=== PATIENT | male | born 1970 | race Hispanic/Latino ===

== ENCOUNTER 2017-09-07 12:17 | Outpatient (CLI) | payer OTHER ==
--- NOTE | 2017-09-07 14:56 | MRI ---
MRI RIGHT KNEE WITHOUT COTNRAST: HISTORY: S89.91XD, injury of right knee. COMPARISON: MRI right knee 12/30/15. FINDINGS: MEDIAL MENISCUS: Healed undersurface flap tear with scar tissue of the medial meniscus without displaced fibers. Mild to moderate degenerative signal in the medial meniscal body. LATERAL MENISCUS: Mild degenerative signal within the body of the lateral meniscus. The ACL and PCL, MCL, and LCLC are intact. EXTENSOR MECHANISM: The quadriceps tendon and patella and patella tendon are intact. CARTILAGE: PATELLOFEMORAL COMPARTMENT: There is some superficial fissuring of the medial trochlea. LATERAL COMPARTMENT: Intact. MEDIAL COMPARTMENT: Intact. MUSCLES: Muscle signal and bulk is normal. IMPRESSION: Partially healed with scar and granulation tissue undersurface flap tear of the medial meniscal body with truncation of the undersurface for an AP length of 7 mm. POS: [facility]
== END 2017-09-07 12:18 | disposition home or self-care (01) ==
LOC: SCSMRI 12:17
PROVIDERS: ATTEND Family Medicine
DX: S89.91XD Unspecified injury of right lower leg, subsequent encounter (principal)

== ENCOUNTER 2022-07-16 12:32 | Outpatient (CLI) | payer BC | END 2022-07-16 12:33 | disposition home or self-care (01) | LOC: SLEEPLAB 12:32 | PROVIDERS: ATTEND Nurse Practitioner Family | DX: G47.33 Obstructive sleep apnea (adult) (pediatric) (principal); R51.9 Headache, unspecified; R53.83 Other fatigue; R09.89 Other specified symptoms and signs involving the circulatory and respiratory systems; E11.9 Type 2 diabetes mellitus without complications; E66.9 Obesity, unspecified; R06.83 Snoring; I10 Essential (primary) hypertension; Z68.41 Body mass index [BMI] 40.0-44.9, adult; Z99.89 Dependence on other enabling machines and devices | CPT/HCPCS: 95800 ==

== ENCOUNTER 2023-01-04 08:39 | Outpatient (CLI) | payer BC | END 2023-01-04 08:40 | disposition home or self-care (01) | LOC: ULT 08:39 | PROVIDERS: ATTEND Nurse Practitioner Family | DX: R10.11 Right upper quadrant pain (principal); K82.8 Other specified diseases of gallbladder | CPT/HCPCS: 76700 ==

== ENCOUNTER 2023-02-19 16:23 | Outpatient (CLI) | payer BC ==
[2023-02-19 18:09] LABS: #Eosinphils 0.2 10x3/uL (0.0-0.5); #Monocytes 0.8 10x3/uL (0.0-1.1); #Neutrophils 3.2 10x3/uL (1.5-8.4); %Basophils 0.4 % (0.0-2.0); %Eosinophils 2.7 % (0.0-6.0); %Lymphocytes 37.9 % (18.0-47.0); %Monocytes 11.4 % (0.0-10.0); %Neutrophils 47.3 % (40.0-75.0); Hemoglobin 14.7 g/dL (13.5-17.5); Mean Corpuscular Hemoglobin 32.5 pg (27.0-33.0); Mean Corpuscular Volume 92.7 fl (81.2-95.1); Mean Platelet Volume 10.3 fl (7.4-10.4); Platelet Count 243 10x3/uL (150-450); Red Blood Cell (RBC) Count 4.53 10x6/uL (4.32-5.72); White Blood Cell (WBC) Count 6.7 10x3/uL (3.5-10.5)
[2023-02-19 18:20] LABS: ALT (SGPT) 75 U/L (8-55); AST (SGOT) 40 U/L (5-34); Albumin 4.1 g/dL (3.5-5.0); Alkaline Phosphatase 39 U/L (40-110); Anion Gap 12 mmol/L (10-20); BUN (Urea Nitrogen) 16 mg/dL (8.4-25.7); Bilirubin, Direct 0.2 mg/dL (0.1-0.3); Bilirubin, Total 0.5 mg/dL (0.2-1.2); Calc. Creatinine Clearance 0 mL/min (70-130); Calcium 9.8 mg/dL (7.8-10.44); Carbon Dioxide 26 mmol/L (22-29); Chloride 103 mmol/L (98-107); Estimated GFR 104; Globulin 3.6 g/dL (2.4-3.5); Glucose 86 mg/dL (70-105); Potassium 3.6 mmol/L (3.5-5.1); Protein, Total 7.7 g/dL (6.0-8.3); Sodium 137 mmol/L (136-145)
== END 2023-02-19 16:24 | disposition home or self-care (01) ==
LOC: LABBT 16:23
PROVIDERS: ATTEND Surgery
DX: Z01.812 Encounter for preprocedural laboratory examination (principal); K80.10 Calculus of gallbladder with chronic cholecystitis without obstruction
CPT/HCPCS: 80053; 80076; 85025

== ENCOUNTER 2023-03-01 10:06 | Day surgery (SDC) | payer BC ==
[2023-02-19 16:49] VITALS: BMI 44.1
[2023-03-01] MEDS ORDERED: Bupivacaine 0.25% HCL 30 ML VIAL ONE (13:33)
[2023-03-01] MEDS ORDERED: EPINEPHrine 1 MG/ML AMP ONE (13:33)
[2023-03-01] MEDS ORDERED: Indocyanine Green 25 MG/10 ML VIAL ONE (13:33)
[2023-03-01] MEDS ORDERED: fentaNYL PF 100 MCG/2 ML SYRINGE ONE (13:34)
[2023-03-01] MEDS ORDERED: LevoFLOXacin 500 mg/D5W 100 ML BAG ONE (13:42)
[2023-03-01] MEDS ORDERED: cefOXitin 2 GM VIAL ONE (13:48)
[2023-03-01] MEDS ORDERED: Sodium Chloride 0.9% 100 ML ONE (13:48)
[2023-03-01] MEDS ORDERED: PHENYLEPHRINE-NS 100 MCG/ML 10 ML SYRINGE ONE (13:53)
[2023-03-01] MEDS ORDERED: Rocuronium Bromide 10 MG/ML (10ML VIAL) ONE (13:53)
[2023-03-01] MEDS ORDERED: Dexamethasone 20 MG/5 ML VIAL ONE (13:53)
[2023-03-01] MEDS ORDERED: PROPOFOL 200 MG/20 ML VIAL ONE (13:53)
[2023-03-01] MEDS ORDERED: Lidocaine 1% PF 5 ML VIAL ONE (13:53)
[2023-03-01] MEDS ORDERED: ePHEDrine Sulfate 50 MG/10 ML VIAL ONE (13:53)
[2023-03-01] MEDS ORDERED: Succinylcholine 200 MG/10 ml SYRINGE FS ONE (13:53)
[2023-03-01] MEDS ORDERED: Ondansetron PF 4 MG/2 ML Vial ONE (13:53)
[2023-03-01] MEDS ORDERED: fentaNYL 50 mcg/mL 1 mL Vial ONE (15:43)
[2023-03-01] MEDS ORDERED: HYDROcodone/Acetaminophen 5/325 mg Tablet ONE (16:24)
== END 2023-03-01 16:58 | disposition home or self-care (01) ==
LOC: SDC 10:06
PROVIDERS: ATTEND Surgery
PROC: 0FT44ZZ Resection of Gallbladder, Percutaneous Endoscopic Approach (ICD-10-PCS; principal; 2023-03-01)
DX: K80.10 Calculus of gallbladder with chronic cholecystitis without obstruction (principal); I10 Essential (primary) hypertension; E11.9 Type 2 diabetes mellitus without complications; G47.33 Obstructive sleep apnea (adult) (pediatric); Z79.82 Long term (current) use of aspirin; Z79.84 Long term (current) use of oral hypoglycemic drugs; Z88.0 Allergy status to penicillin; Z88.6 Allergy status to analgesic agent
CPT/HCPCS: 88304; J0171; J0694; J1100; J1956; J2405; J2704; J3010; J3490; S0020

== ENCOUNTER 2023-04-23 16:04 | Outpatient (CLI) | payer BC | END 2023-04-23 16:05 | disposition home or self-care (01) | LOC: SCSRAD 16:04 | PROVIDERS: ATTEND Physician Assistant Medical | DX: M25.462 Effusion, left knee (principal) ==

== ENCOUNTER 2023-05-07 11:43 | Outpatient (CLI) | payer BC | END 2023-05-07 11:44 | disposition home or self-care (01) | LOC: SCSMRI 11:43 | PROVIDERS: ATTEND Physician Assistant Medical | DX: M25.462 Effusion, left knee (principal); S83.282A Other tear of lateral meniscus, current injury, left knee, initial encounter; S83.412A Sprain of medial collateral ligament of left knee, initial encounter ==

== ENCOUNTER 2023-06-24 14:08 | Outpatient (CLI) | payer BC ==
[2023-06-24 15:57] LABS: #Eosinphils 0.3 10x3/uL (0.0-0.5); #Monocytes 0.6 10x3/uL (0.0-1.1); #Neutrophils 1.8 10x3/uL (1.5-8.4); %Basophils 0.8 % (0.0-2.0); %Eosinophils 5.3 % (0.0-6.0); %Lymphocytes 46.5 % (18.0-47.0); %Monocytes 11.7 % (0.0-10.0); %Neutrophils 35.5 % (40.0-75.0); Hematocrit 44.6 % (38.8-50.0); Hemoglobin 15.8 g/dL (13.5-17.5); Mean Corpuscular HGB CONC 35.4 g/dL (32.0-36.0); Mean Corpuscular Hemoglobin 31.6 pg (27.0-33.0); Mean Corpuscular Volume 89.2 fl (81.2-95.1); Mean Platelet Volume 10.4 fl (7.4-10.4); Platelet Count 267 10x3/uL (150-450); RBC Distribution Width 12.5 % (11.5-14.5)
[2023-06-24 16:02] LABS: Prothrombin Time 10.8 sec (9.5-12.1)
[2023-06-24 16:11] LABS: Anion Gap 11 mmol/L (10-20); BUN (Urea Nitrogen) 14 mg/dL (8.4-25.7); Calc. Creatinine Clearance 0 mL/min (70-130); Calcium 9.7 mg/dL (7.8-10.44); Carbon Dioxide 27 mmol/L (22-29); Chloride 102 mmol/L (98-107); Estimated GFR 104; Glucose 121 mg/dL (70-105); Potassium 3.6 mmol/L (3.5-5.1); Sodium 136 mmol/L (136-145)
== END 2023-06-24 14:09 | disposition home or self-care (01) ==
LOC: LABBT 14:08
PROVIDERS: ATTEND Orthopaedic Surgery
DX: Z01.818 Encounter for other preprocedural examination (principal); S83.242A Other tear of medial meniscus, current injury, left knee, initial encounter
CPT/HCPCS: 80048; 85025; 85610; 93005; 93010

== ENCOUNTER 2023-07-01 10:43 | Day surgery (SDC) | payer BC ==
[2023-06-24 14:39] VITALS: BMI 45.7
[2023-07-01] MEDS ORDERED: CEFAZOLIN 2 GM VIAL ONE (11:46)
[2023-07-01] MEDS ORDERED: Tranexamic Acid 1,000 MG/10 ML VIAL ONE (11:46)
[2023-07-01] MEDS ORDERED: Sodium Chloride 0.9% 0 ML ONE (11:47)
[2023-07-01] MEDS ORDERED: Vancomycin (BATCH) 2 GM in Premix 1 BAG IVPB SCH (12:00)
[2023-07-01] MEDS ORDERED: Sodium Chloride 0.9% 100 ML ONE (12:21)
[2023-07-01] MEDS ORDERED: PROPOFOL 20 ML ONE ×3 (12:38→14:03)
[2023-07-01] MEDS ORDERED: Lidocaine 2% PF 5 ML VIAL ONE (12:52)
[2023-07-01] MEDS ORDERED: Bupivacaine PF 0.5% 30 ML VIAL ONE (12:53)
[2023-07-01] MEDS ORDERED: Bupivacaine 0.25% HCL 30 ML VIAL ONE (13:41)
[2023-07-01] MEDS ORDERED: EPINEPHrine 1 MG/ML VIAL ONE (13:41)
[2023-07-01] MEDS ORDERED: Clindamycin/D5W 900 mg/50 ml Premix Bag ONE (13:54)
[2023-07-01] MEDS ORDERED: Ondansetron PF 4 MG/2 ML Vial ONE (14:14)
[2023-07-01] MEDS ORDERED: ePHEDrine Sulfate 50 MG/10 ML VIAL ONE (14:20)
[2023-07-01] MEDS ORDERED: Glycopyrrolate 0.2 MG/ML 5 ML SYRINGE ONE (14:29)
[2023-07-01] MEDS ORDERED: fentaNYL 50 mcg/mL 1 mL Vial ONE ×2 (15:12→15:28)
[2023-07-01] MEDS ORDERED: HYDROcodone/Acetaminophen 5/325 mg Tablet ONE (16:08)
== END 2023-07-01 17:15 | disposition home or self-care (01) ==
LOC: SDC 10:43
PROVIDERS: ATTEND Orthopaedic Surgery
PROC: 0SBD4ZZ Excision of Left Knee Joint, Percutaneous Endoscopic Approach (ICD-10-PCS; principal; 2023-07-01)
DX: S83.242A Other tear of medial meniscus, current injury, left knee, initial encounter (principal); I10 Essential (primary) hypertension; E78.5 Hyperlipidemia, unspecified; Z79.899 Other long term (current) drug therapy; Z88.0 Allergy status to penicillin; Z88.6 Allergy status to analgesic agent; X58.XXXA Exposure to other specified factors, initial encounter
CPT/HCPCS: J0171; J0665; J2001; J2405; J2704; J3010; J3370; J3490